=== PATIENT | male | born 1980 | race Two or more races ===

== ENCOUNTER 2023-03-20 21:29 | Emergency (ER) | payer MEDICARE, OTHER ==
[~2023-03-20] VITALS: Ht 180.3 cm; Wt 68.0 kg
[2023-03-20 21:33] VITALS: BP 166/100
[2023-03-21] MEDS ORDERED: Benztropine Me0.5 MG PO (21:51)
[2023-03-21] MEDS ORDERED: RISPERIDONE2 M9 PO (21:51)
[2023-03-21] MEDS ORDERED: HYDPAM50 PO (21:53)
== END 2023-03-20 21:33 | disposition home or self-care (01) ==
LOC: ER 21:29
DX: S90.822A Blister (nonthermal), left foot, initial encounter (principal); X58.XXXA Exposure to other specified factors, initial encounter
CPT/HCPCS: 99283

== ENCOUNTER 2023-03-21 21:33 | Emergency (ER) | payer OTHER, MEDICARE ==
[~2023-03-21] VITALS: Ht 180.3 cm; Wt 68.0 kg
[2023-03-21 21:45] VITALS: BP 163/102
[2023-03-21] MEDS ORDERED: RISPERIDONE2 M9 PO (21:51)
[2023-03-21] MEDS ORDERED: Benztropine Me0.5 MG PO (21:51)
[2023-03-21] MEDS ORDERED: HYDPAM50 PO (21:53)
== END 2023-03-21 21:58 | disposition home or self-care (01) ==
LOC: ER 21:33
DX: H53.8 Other visual disturbances (principal); F41.9 Anxiety disorder, unspecified; Z79.899 Other long term (current) drug therapy; X58.XXXA Exposure to other specified factors, initial encounter; Y92.833 Campsite as the place of occurrence of the external cause; Y93.39 Activity, other involving climbing, rappelling and jumping off
CPT/HCPCS: 99283; A9270

== ENCOUNTER 2023-04-06 11:36 | Emergency (ER) | payer MEDICARE, OTHER ==
[~2023-04-06] VITALS: Ht 180.3 cm; Wt 64.9 kg
[~2023-04-06 11:36] MED LIST: Benztropine Me0.5 MG PO; HYDPAM50 PO; RISPERIDONE2 M9 PO
[2023-04-06] MEDS ORDERED: Flonase 0.05% N16 GM (12:04)
[2023-04-06] MEDS ORDERED: Loratadine10 MG PO (12:05)
[2023-04-06] MEDS ORDERED: ALBU90OI INH (13:51)
[2023-04-06] MEDS ORDERED: AZIT250 PO (13:51)
[2023-04-06 14:09] VITALS: BP 136/84
== END 2023-04-06 14:09 | disposition home or self-care (01) ==
LOC: ER 11:36
DX: J18.0 Bronchopneumonia, unspecified organism (principal); F20.9 Schizophrenia, unspecified; F41.9 Anxiety disorder, unspecified; R25.1 Tremor, unspecified; Z59.02 Unsheltered homelessness; Z87.891 Personal history of nicotine dependence; Z91.011 Allergy to milk products; Z91.018 Allergy to other foods; Z79.899 Other long term (current) drug therapy; Z79.51 Long term (current) use of inhaled steroids
CPT/HCPCS: 71046; 99283-25

== ENCOUNTER 2023-04-16 17:46 | Emergency (ER) | payer MEDICARE, OTHER ==
[~2023-04-16] VITALS: Ht 180.3 cm; Wt 64.9 kg
[~2023-04-16 17:46] MED LIST changes: +ALBU90OI INH; +AZIT250 PO; +Flonase 0.05% N16 GM; +Loratadine10 MG PO
[2023-04-16 18:21] VITALS: BP 143/91
[2023-04-16 18:49] LABS: BASOPHILS ABSOLUTE AUTO 0.05 K/mm3 (0.00-0.23); BASOPHILS PERCENT AUTO 0 % (0-2); EOSINOPHILS ABSOLUTE AUTO 0.04 K/mm3 (0.00-0.68); EOSINOPHILS PERCENT AUTO 0 % (0-6); Hematocrit 39.7 % (37.0-53.0); Hemoglobin 13.2 g/dL (13.5-17.5); IMMATURE GRAN ABSOLUTE AUTO 0.05 K/mm3 (0.00-0.10); IMMATURE GRAN PERCENT AUTO 0 % (0-1); LYMPHOCYTES ABSOLUTE AUTO 1.94 K/mm3 (0.84-5.20); LYMPHOCYTES PERCENT AUTO 15 % (21-46); MONOCYTES ABSOLUTE AUTO 0.66 K/mm3 (0.16-1.47); MONOCYTES PERCENT AUTO 5 % (4-13); Mean Corpuscular HGB Conc 33.2 g/dL (31.5-36.5); Mean Corpuscular Volume 96 fL (80-100); Mean Platelet Volume 9.3 fL (9.1-12.4); NEUTROPHILS ABSOLUTE AUTO 10.68 K/mm3 (1.96-9.15); NEUTROPHILS PERCENT AUTO 80 % (41-73); Platelet Count 341 K/mm3 (150-400); RDW Coefficient Variation 11.5 % (11.7-14.2); RDW Standard Deviation 40.1 fL (35.1-46.3); Red Blood Cell Count 4.13 M/mm3 (4.30-5.90); White Blood Cell Count 13.42 K/mm3 (4.00-11.30)
[2023-04-16 19:11] LABS: Albumin, Blood 3.6 g/dL (3.4-5.0); Albumin/Globulin Ratio 0.8 (0.8-1.8); Bilirubin, Total 0.3 mg/dL (0.1-1.0); Bun/Creatinine Ratio 29.7 (12.0-20.0); Calcium, Blood 9.5 mg/dL (8.5-10.1); Creatinine, Blood 0.91 mg/dL (0.60-1.20); Globulin, Blood 4.4 g/dL (2.2-4.0); Potassium, Blood 4.1 mmol/L (3.5-5.5)
[2023-04-16] MEDS ORDERED: Tetanus and Diphtheria Toxoid 0.5 ML INJ IM ONE (19:55)
[2023-04-16] MEDS ORDERED: Cephalexin Monohydrate 500 MG Cap PO ONE (19:55)
[2023-04-16] MEDS ORDERED: Trimethoprim/Sulfamethoxazole DS Tab PO ONE (19:55)
[2023-04-16] MEDS ORDERED: CEPH500 PO (20:12)
[2023-04-16] MEDS ORDERED: BACTRIM DS TAB1 EAC1 PO (20:12)
[2023-04-16] MEDS ORDERED: BENZONATATE100 MG PO (22:06)
== END 2023-04-16 20:27 | disposition home or self-care (01) ==
LOC: ER 17:46
PROVIDERS: Physician Assistant
DX: L03.113 Cellulitis of right upper limb (principal); Z79.899 Other long term (current) drug therapy
CPT/HCPCS: 73130; 80053; 85025; 90471; 90714; 99283-25; A9270

== ENCOUNTER 2023-11-07 06:14 | Emergency (ER) | payer MEDICARE, OTHER ==
[~2023-11-07] VITALS: Ht 180.3 cm; Wt 63.5 kg
[~2023-11-07 06:14] MED LIST changes: +BACTRIM DS TAB1 EAC1 PO; +BENZONATATE100 MG PO; +CEPH500 PO
[2023-11-07 08:11] LABS: BASOPHILS ABSOLUTE AUTO 0.02 K/mm3 (0.00-0.23); BASOPHILS PERCENT AUTO 0 % (0-2); EOSINOPHILS ABSOLUTE AUTO 0.04 K/mm3 (0.00-0.68); EOSINOPHILS PERCENT AUTO 1 % (0-6); Hematocrit 36.1 % (37.0-53.0); Hemoglobin 12.2 g/dL (13.5-17.5); IMMATURE GRAN ABSOLUTE AUTO 0.02 K/mm3 (0.00-0.10); IMMATURE GRAN PERCENT AUTO 0 % (0-1); LYMPHOCYTES ABSOLUTE AUTO 0.82 K/mm3 (0.84-5.20); LYMPHOCYTES PERCENT AUTO 15 % (21-46); MONOCYTES ABSOLUTE AUTO 0.22 K/mm3 (0.16-1.47); MONOCYTES PERCENT AUTO 4 % (4-13); Mean Corpuscular HGB 31.9 pg (26.0-34.0); Mean Corpuscular HGB Conc 33.8 g/dL (31.5-36.5); Mean Corpuscular Volume 94 fL (80-100); Mean Platelet Volume 9.5 fL (9.1-12.4); NEUTROPHILS ABSOLUTE AUTO 4.43 K/mm3 (1.96-9.15); NEUTROPHILS PERCENT AUTO 80 % (41-73); Platelet Count 309 K/mm3 (150-400); RDW Coefficient Variation 11.5 % (11.7-14.2); RDW Standard Deviation 39.2 fL (35.1-46.3); Red Blood Cell Count 3.83 M/mm3 (4.30-5.90); White Blood Cell Count 5.55 K/mm3 (4.00-11.30)
[2023-11-07 08:35] LABS: Albumin, Blood 3.5 g/dL (3.4-5.0); Albumin/Globulin Ratio 0.9 (0.8-1.8); Bilirubin, Total 0.4 mg/dL (0.1-1.0); Bun/Creatinine Ratio 15.7 (12.0-20.0); Calcium, Blood 8.8 mg/dL (8.5-10.1); Creatinine, Blood 0.89 mg/dL (0.60-1.20); Globulin, Blood 3.8 g/dL (2.2-4.0); Potassium, Blood 3.8 mmol/L (3.5-5.5); Total Protein, Blood 7.3 g/dL (6.4-8.2)
[2023-11-07 09:54] VITALS: BP 133/99
== END 2023-11-07 10:50 | disposition home or self-care (01) ==
LOC: ER 06:14
PROVIDERS: Emergency Medicine
DX: R07.9 Chest pain, unspecified (principal); Z79.51 Long term (current) use of inhaled steroids; Z79.899 Other long term (current) drug therapy
CPT/HCPCS: 71046; 80053; 84484; 85025; 93005; 93010; 99285-25

== ENCOUNTER 2023-11-24 11:58 | Emergency (ER) | payer MEDICARE, OTHER ==
[~2023-11-24] VITALS: Ht 180.3 cm; Wt 63.5 kg
[2023-11-24 12:06] VITALS: BP 146/95
== END 2023-11-24 12:25 | disposition home or self-care (01) ==
LOC: ER 11:58
DX: R05.9 Cough, unspecified (principal); Z79.51 Long term (current) use of inhaled steroids; Z79.899 Other long term (current) drug therapy
CPT/HCPCS: 99282